=== PATIENT | male | born 1955 | race Caucasian/White ===

== ENCOUNTER 2021-01-19 17:04 | Emergency (ER) | payer MEDICAID ==
[~2021-01-19] VITALS: Ht 182.9 cm; Wt 59.0 kg
[2021-01-19] MEDS ORDERED: ETOMIDATE 20 MG/10 ML VIAL IVP ONE (17:05)
[2021-01-19] MEDS ORDERED: ROCURONIUM 50 MG/5 ML VIAL IV ONE (17:05)
[2021-01-19] MEDS ORDERED: SUCCINYLCHOLINE CHLORIDE 200 MG/10 ML VIAL IV ONE (17:05)
--- NOTE | 2021-01-19 17:05 | NUR ---
65 Y/O M BIBA FROM HOME, [facility] REPORTS LAST KNOWN WELL TIME WAS LAST NIGHT AROUND 1999. PT IS HAVING INVOLUNTARY MOVEMENTS OF FACE ON R SIDE, HIGH BLOOD SUGAR EN ROUTE OF 588. PT NON VERBAL, NON AMBULATORY OR RESPONDING TO COMMANDS AT THIS TIME. 300ML OF NS BOLUS TO 18G IV PLACED BY [facility]. UPON ARRIVAL, PT HAS NG TUBE PLACED BY DAUGHTER, NO MD ORDER. [facility] REPORTS THAT DAUGHTER HAD AN EXTRA NG TUBE FROM HOME AND PLACED PEDIATRIC NG TUBE IN R NARE. PMH: DM2, PROSTATE CANCER NKA MED: "MEDICATION FROM [facility]"
--- NOTE | 2021-01-19 17:05 | NUR ---
Dr. Marvin is evaluating patient on [facility].
--- NOTE | 2021-01-19 17:06 | NUR ---
BIBA TAKEN TO BED 9
--- NOTE | 2021-01-19 17:14 | NUR ---
CODE BRAIN INITIATED BY DR. CHISHOLM. CT CONTACTED MADE AWARE
[2021-01-19] MEDS ORDERED: NACL 0.9% 1,000 ML IV ONE ×5 (17:15→21:00)
[2021-01-19 17:16] VITALS: BP 165/84
--- NOTE | 2021-01-19 17:18 | NUR ---
Pt placed onto 2L by NC. SpO2 100% on 2L
--- NOTE | 2021-01-19 17:18 | NUR ---
Patient with seizure; Dr. Marvin made aware and at bedside.
--- NOTE | 2021-01-19 17:20 | NUR ---
SEIZURE PRECAUTIONS IN PLACE.
--- NOTE | 2021-01-19 17:23 | NUR ---
Patient with another seizure lasting ~30 seconds. Pt with L to R eye gaze
--- NOTE | 2021-01-19 17:23 | NUR ---
Patient transported to CT by leo. Telemetry box and 2L NC in place.
--- NOTE | 2021-01-19 17:24 | NUR ---
Ativan 2mg IVP given
[2021-01-19] MEDS ORDERED: LORazepam 2 MG/ML VIAL IVP ONE ×2 (17:25→17:55)
--- NOTE | 2021-01-19 17:30 | NUR ---
RAD at bedside
--- NOTE | 2021-01-19 17:34 | NUR ---
Patient back to bed by leo and placed onto glueline worker.
--- NOTE | 2021-01-19 17:53 | NUR ---
Patient presents with seizure R shoulder tremors and eye rolling. Dr. Marvin made aware verbal order for Ativan 2mg IVP to be administered.
[2021-01-19] MEDS ORDERED: levETIRAcetam 1,000 MG in NACL 0.9% 100 ML IV ONE (17:55)
[2021-01-19 18:06] LABS: BASOPHILS % (AUTO) 0.3 % (0.0-2.0); HEMATOCRIT 36.4 % (36-52); HEMOGLOBIN 11.1 g/dL (12.0-18.0); LYMPHOCYTES # (AUTO) 0.3 K/uL (2.0-11.5); LYMPHOCYTES % (AUTO) 1.7 % (20.5-51.1); MEAN CORPUSCULAR HEMOGLOBIN 29 pg (27-31); MEAN CORPUSCULAR HGB CONC 31 g/dL (33-37); MEAN CORPUSCULAR VOLUME 95.4 fL (80-94); MONOCYTES # (AUTO) 0.5 K/uL (0.8-1.0); MONOCYTES % (AUTO) 3.2 % (1.7-9.3); NEUTROPHILS # (AUTO) 14.4 K/uL (1.8-7.7); NEUTROPHILS % (AUTO) 94.8 % (42.2-75.2); PLATELET COUNT (AUTO) 439 K/uL (140-450); RED BLOOD CELL COUNT(AUTO) 3.82 MIL/uL (4.20-6.10); RED CELL DISTRIBUTION WIDTH 14.3 % (11.6-13.7); WHITE BLOOD COUNT (AUTO) 15.2 K/uL (4.8-10.8)
[2021-01-19 18:08] LABS: APPEARANCE,URINE CLEAR (CLEAR); BILIRUBIN,URINE NEGATIVE (NEGATIVE); BLOOD, URINE 2+ (NEGATIVE); COLOR,URINE YELLOW (YELLOW); LEUKOCYTE ESTERASE ,URINE NEGATIVE (NEGATIVE); NITRITE, URINE POSITIVE (NEGATIVE); UGLUCOSE 3+ (NEGATIVE)
--- NOTE | 2021-01-19 18:21 | NUR ---
PT TAKEN TO ER BED 10
[2021-01-19 18:31] LABS: ALBUMIN 2.6 g/dL (3.4-5.0); ANION GAP 32.3 (8-16); CARBON DIOXIDE 12.6 mmol/L (21-32); CREATININE 3.3 mg/dL (0.6-1.3); POTASSIUM 5.9 mmol/L (3.5-5.1); TOTAL BILIRUBIN 0.5 mg/dL (0.0-1.0)
[2021-01-19 18:39] LABS: PROTHROMBIN TIME 10.1 secs (10.8-13.4)
[2021-01-19] MEDS ORDERED: INSULIN REGULAR, HUMAN 100 UNIT/ML VIAL IVP SCH (19:15)
[2021-01-19] MEDS ORDERED: CEFEPIME 2,000 MG in DEXTROSE 5% 100 ML IV SCH (19:15)
--- NOTE | 2021-01-19 19:20 | NUR ---
Report and transfer of care endorsed to ERICA Gould.
--- NOTE | 2021-01-19 19:30 | NUR ---
RECEIVED IN BED 10, NON VERBAL WITH SEIZURE PRECAUTIONS IN PLACE. ACCUCHECK = HIGH. IS RESTLESS PULLING AT GOWN AND IV TUBING. HAS BEEN INCONTINENT OF URINE, LINENS CHANGED, REPOSITIONED
[2021-01-19 19:43] LABS: RBC,URINE 11-20 (MOD) /HPF (0-5); WBC,URINE 0-5 /HPF (0-5)
[2021-01-19 19:44] LABS: CALCIUM OXALATE CRYSTALS,UR None Seen /HPF (None Seen); TRICHOMONAS,URINE None Seen /HPF (None Seen); YEAST,URINE None Seen /HPF (None Seen)
[2021-01-19] MEDS ORDERED: CEFEPIME 2,000 MG VIAL IV ONE (19:44)
[2021-01-19 19:48] LABS: MAGNESIUM 3.2 mg/dL (1.8-2.4); PHOSPHORUS 8.7 mg/dL (2.5-4.9)
[2021-01-19] MEDS ORDERED: INSULIN REGULAR, HUMAN 100 UNIT in NACL 0.9% 100 ML IV SCH ×4 (20:50→21:00)
[2021-01-19] MEDS ORDERED: INTUBATION KIT MC ONE (21:58)
[2021-01-19] MEDS ORDERED: MIDAZOLAM 5 MG/5 ML VIAL IV ONE (22:30)
[2021-01-19] MEDS ORDERED: MIDAZOLAM 2 MG/2 ML VIAL ONE (22:32)
[2021-01-19 22:35] VITALS: BP 148/70
--- NOTE | 2021-01-19 22:35 | NUR ---
TRANSFERED V[place] [facility], WITH [facility] ACCOMPANYING,[place] [facility] [place] WAS GIVEN 5U REGULAR INSULIN PRIOR TO TRANSFER AND VERSED ORDERED
[2021-01-19] MEDS ORDERED: INSULIN REGULAR, HUMAN 100 UNIT/ML VIAL IVP ONE (22:45)
--- NOTE | 2021-01-20 08:45 | NUR ---
PATIENT HAS BEEN SCREENED AND CATEGORIZED HIGH NUTRITION RISK. PATIENT WILL BE SEEN WITHIN 1-2 DAYS OF ADMISSION. 01/20/21-01/21/[address]
== END 2021-01-19 22:35 | disposition short-term general hospital (02) ==
LOC: MED 17:04 → UNDOADMIN 20:56 → MED 20:56 → MMU 20:56
DX: R41.82 Altered mental status, unspecified (principal); E87.6 Hypokalemia; E11.65 Type 2 diabetes mellitus with hyperglycemia; I10 Essential (primary) hypertension; N17.9 Acute kidney failure, unspecified
CPT/HCPCS: 31500; 36415; 70450; 71045; 80053; 81001; 83605; 83735; 83880; 83930; 83935; 84100; 84484; 85025; 85610; 85730; 86886; 86900; 86901; 87040; 87086; 93005; 96361; 96365; 96367; 96375; 96376; 99291; J0330; J0692; J1815; J1953; J2060; J2250; J3490; J7030; Q0092